=== PATIENT | male | born 1980 | race African-American/Black ===

== ENCOUNTER 2020-09-05 10:21 | Emergency (ER) | payer MEDICAID ==
[~2020-09-05] VITALS: Ht 175.3 cm; Wt 105.0 kg
[2020-09-05 11:31] VITALS: BP 150/60
== END 2020-09-05 11:37 | disposition home or self-care (01) ==
LOC: ER 10:21
DX: R41.82 Altered mental status, unspecified (principal); R03.0 Elevated blood-pressure reading, without diagnosis of hypertension; V49.49XA Driver injured in collision with other motor vehicles in traffic accident, initial encounter; Y93.89 Activity, other specified; Y92.488 Other paved roadways as the place of occurrence of the external cause; Y99.8 Other external cause status
CPT/HCPCS: 99283